=== PATIENT | female | born 1950 | race Caucasian/White ===

== ENCOUNTER → 2024-05-12 | Outpatient (CLI) | payer MEDICARE ==
--- NOTE | 2024-06-03 15:45 | CT ---
Site ID [facility] Patient Dennis Sabillon ID [id number] Order # Procedure CT IAC WO Contrast Date 05/12/2024 11:02:15 AM EXAMINATION TYPE: CT iac wo con DATE OF EXAM: 05/21/2024 COMPARISON: None, please note PACS Production downtime occurred during the radiologist interpretation of these images with limited priors/reports. HISTORY: Hearing loss left ear CT DLP: 150 mGycm. Automated Exposure Control for Dose Reduction was Utilized. TECHNIQUE: CT scan of internal auditory canal is performed without contrast, thin cut axial images ar e obtained, coronal reformatted images are also reviewed. FINDINGS: The external auditory canals are patent bilaterally. Mastoid air cells show no evidence of abnormal opacification bilaterally. The middle ear ossicles are symmetric and unremarkable. There is no evidence of suspicious surrounding soft tissue density to suggest cholesteatoma. The scutum is preserved bilaterally. The cochlea and the semicircular canals are symmetric and unremarkable. Ves tibular aqueduct and internal carotid canal appear unremarkable. Temporomandibular joints are maintained bilaterally. Mild mucosal thickening in the left ethmoid sinu s. Minimal mucosal thickening of the anterior aspect of the bilateral sphenoid sinuses. The visualize d portion of the left maxillary sinus is clear. Mild mucosal thickening of the inferior right maxilla ry sinus with a 0.8 cm polyp/mucous retention cyst within the superior portion of the right maxillary sinus. Visualized portion brain parenchyma is felt within normal limits. IMPRESSION: 1. No significant abnormality seen to account for patient's symptoms. 2. Mild paranasal sinus disease.
== END | disposition home or self-care (01) ==
LOC: RADCTMAIN 11:00
PROVIDERS: ATTEND Otolaryngology
DX: H93.19 Tinnitus, unspecified ear (principal); H91.90 Unspecified hearing loss, unspecified ear; J34.89 Other specified disorders of nose and nasal sinuses
CPT/HCPCS: 70480